=== PATIENT | male | born 1930 | race Caucasian/White ===

== ENCOUNTER 2019-09-30 09:47 | Inpatient (IN) ==
[2019-09-30 11:04] LABS: BASO# 0.06 X1000 (0.0-0.2); EOS% 1.6 % (0.0-10.0); HEMATOCRIT 39.6 % (42.0-52.0); HEMOGLOBIN 12.7 g/dL (14.0-18.0); LYMPH# 1.73 X1000 (1.2-3.4); LYMPH% 28.4 % (20.5-51.1); MCH 29.7 PG (27-31); MCHC 32.1 g/dL (33-37); MCV 92.7 FL (81-99); MONO# 0.47 X1000 (0.11-0.59); MONO% 7.7 % (1.7-9.3); MPV 10.2 FL (7.4-10.4); NEUT# 3.73 X1000 (1.4-6.5); NEUT% 61.3 % (42.2-75.2); PLT 175 X1000 (130-400); RBC 4.27 XMIL (4.7-6.1); RDW 13.1 % (11.5-14.5); WBC 6.09 X1000 (4.8-10.8)
[2019-09-30 11:19] LABS: INR 2.78; PROTIME 30.2 Seconds (11.0-16.0)
[2019-09-30 11:20] LABS: PTT 38.3 Seconds (22.3-41.8)
[2019-09-30 11:27] LABS: AGAP 6; ALB/GLOB RATIO 1.4; ALBUMIN 3.9 g/dL (3.5-5.0); ALKALINE PHOSPHATASE 48 U/L (32-122); BUN 19 mg/dL (8-22); CALCIUM 8.8 mg/dL (8.8-10.2); CHLORIDE 104 mmol/L (98-107); COSMO 284; ESTIMATED GFR > 60; GLUCOSE 116 mg/dL (70-104); GOT 16 U/L (10-34); GPT 12 U/L (10-44); POTASSIUM 4.7 mmol/L (3.5-5.1); SODIUM 141 mmol/L (136-145); TCO2 31 mmol/L (25-35); TOTAL BILIRUBIN 0.34 mg/dL (0.20-1.00); TOTAL PROTEIN 6.7 g/dL (6.3-8.3)
[2019-09-30 12:15] LABS: URINE SOURCE CLEAN CATCH
[2019-09-30 12:21] LABS: BILIRUBIN URINE NEGATIVE (NEGATIVE); BLOOD URINE NEGATIVE (NEGATIVE); COLOR YELLOW; GLUCOSE URINE NEGATIVE (NEGATIVE); KETONE URINE NEGATIVE (NEGATIVE); LEUKOCYTES URINE NEGATIVE (NEGATIVE); NITRITE URINE NEGATIVE (NEGATIVE); PROTEIN URINE NEGATIVE (NEGATIVE); SP GRAVITY URINE 1.017; TURBIDITY URINE CLEAR (CLEAR); UR EPITHELIAL CELLS <10 /HPF (<10); URINE BACTERIA NEGATIVE /HPF; URINE RBC <10 /HPF (<10); URINE WBC <10 /HPF (<10); UROBILINOGEN URINE NORMAL (NORMAL)
[2019-09-30] MEDS ORDERED: SODIUM CHLORIDE 0.9% INJ ONE (12:27)
[2019-09-30] MEDS ORDERED: PROTONIX IV ONE (12:27)
--- NOTE | 2019-09-30 12:29 | PROVIDER DOCUMENTATION ---
This chart was entered by Cecilia Salcido Scribe, acting as scribe for Roel Leon MD. HPI-Abdominal Pain/GI Problem - General Chief Complaint: GI Bleed Stated Complaint: RECTAL BLEEDING Time Seen by Provider: 09/30/19 10:14 Source: patient, family (daughter) Allergies/Adverse Reactions: Patient Allergies Allergy/AdvReac Type Severity Reaction Status Date / Time No Known Allergies Allergy Verified 12/12/13 11:30 Home Medications: Home Medication List Medication Instructions Recorded Confirmed Last Taken Type Tamsulosin HCl [Flomax] 0.4 mg PO DAILY 12/12/13 09/30/19 07/16/19 08:00 History Metoprolol Tartrate 25 mg PO DAILY 07/10/19 09/30/19 07/17/19 07:17 History Hope-3 Fatty Acids/Fish Oil [Fish 1 cap PO DAILY 09/30/19 09/30/19 Unknown History Oil 1,000 mg Capsule] Warfarin Sodium 5 mg PO ORDERED 09/30/19 09/30/19 Unknown History - History of Present Illness-ABD Nature of Presenting Problems: 89 yowm presents to the ed with c./o x3 episodes this am with bloody diarrhea. pt sts has never had blood in stool but is on current blood thinner for DVT's. pt on exam is nontoxic in appearance and in no distress Abdominal Pain Onset Location: reports: other (rectal bleeding) Pain Radiation: reports: no radiation Quality of Pain: reports: none Severity in ED: reports: mild Onset/Duration: reports: this morning Timing: reports: intermittent Activities at Onset: reports: light activity Exposure to sick contacts?: No Modifying Factors: improves with: nothing. worse with: defecating Associated Symptoms: reports: diarrhea. denies: back/neck pain, chest pain, cough, diaphoresis, fever/chills, headaches, nausea, shortness of breath, vomiting Last BM: this morning Dark Stools Present?: reports: bright red blood Rectal Bleeding: reports: bloody diarrhea # of Diarrhea Episodes: 3 Rectal Pain: reports: none # of Vomiting Episodes: 0 Emesis Description: reports: none Bruising or Bleeding Gums?: No Similar Symptoms Previously?: No Recently seen or treated by another doctor?: No Review of Systems - Adult - REVIEW OF SYSTEMS - ADULT Constitutional: denies: chills, fever Eyes: reports: no symptoms reported Ears, Nose, Mouth & Throat: reports: no symptoms reported Cardiovascular: denies: chest pain, palpitations, syncope Respiratory: denies: cough, shortness of breath, wheezing Gastrointestinal: reports: see HPI, rectal bleeding. denies: abdominal pain, diarrhea, nausea, vomiting Genitourinary: reports: no symptoms reported Musculoskeletal: denies: back pain, neck pain Integumentary: reports: no symptoms reported Neurological: denies: dizziness/vertigo, headache/migraines Psychiatric: reports: no symptoms reported Endocrine: reports: no symptoms reported Hematologic/Lymphatic: reports: no symptoms reported Allergic/Immunologic: reports: no symptoms reported All Other Systems: Reviewed and Negative Past History - Adult - PAST MEDICAL HISTORY-ADULT Review of Records: reports: Old Records Reviewed, Nursing Assessment Review, Medications Reviewed, Social history reviewed & non-contributory. Major Childhood Illnesses: reports: denies history Cardiovascular: reports: blood clots, HTN, NM Respiratory: reports: denies history Gastrointestinal: reports: denies history Genitourinary: reports: kidney stones, other (enlarged prostate) Musculoskeletal: reports: denies history Hand Dominance: Right Handed Neurological: reports: denies history Psychiatric: reports: denies history Endocrine/Immune: reports: denies history Other Conditions: reports: cataract/glaucoma - PRIOR SURGERIES/PROCEDURES Surgical/Procedure History: reports: hernia repair, other (cataract removal) - PRIOR HOSPITALIZATIONS Prior Hospitalizations: reports: none - IMMUNIZATION STATUS Childhood Immunizations: See Nurse Assessment Flu Vaccine: See Nurse Assessment - FAMILY HISTORY Family History: reviewed, not pertinent - SOCIAL HISTORY Smoking: denies Substance Use: denies Living Situation: family Physical Exam-General - PHYSICAL EXAM-ADULT Initial Vital Signs Reviewed: Yes - CONSTITUTIONAL General Appearance: appears well, alert, no apparent distress - EYES Eyes: PERRL/EOMI, pink conjunctivae - HEAD, EARS, NOSE, MOUTH & THROAT HENMT: moist mucous membranes, normal ENT inspection - NECK Neck: non-tender, full range of motion, supple, normal inspection - RESPIRATORY Respiratory: chest non-tender, lungs clear, normal breath sounds - CARDIOVASCULAR Cardiovascular: normal peripheral pulses, regular rate, rhythm - CHEST (BREASTS) Chest/Breast: deferred - GASTROINTESTINAL (ABDOMEN) Abdominal Exam: normal bowel sounds, non tender, soft, other (well healing hernia sx scar on abdomen) - GENITOURINARY Rectal Exam: normal rectal tone, prostate enlarged/nodule Hemoccult Exam: heme positive stool - LYMPHATIC Lymphatic: no adenopathy - MUSCULOSKELETAL Back Exam: normal inspection, no CVA tenderness, no vertebral tenderness Extremity: normal range of motion, non-tender, normal inspection - SKIN Integumentary: normal color, normal turgor, warm/dry - NEUROLOGIC Neurologic: grossly normal - PSYCHIATRIC Psych/Mental Status: normal mood/affect, normal thought content, normal thought process, oriented x 3 Progress - PLAN OF CARE/RESULTS Progress/Plan/Lab Results: Vital Signs - 8 hr 09/30/19 09:53 Temperature 97.3 F L Pulse Rate 70 Respiratory Rate 18 Blood Pressure 160/83 O2 Sat by Pulse Oximetry 98 Orders Category Date Time Status CBC WITH ELECTRONIC DIFF [HEME] Stat Lab 09/30/19 10:14 Uncollected COMPREHENSIVE METABOLIC PANEL [CHEM] Stat Lab 09/30/19 10:14 Uncollected OCCULT BLOOD SCREENING [STOOL] Stat Lab 09/30/19 10:15 Uncollected PT [PROTIME WITH INR] [COAG] Stat Lab 09/30/19 10:14 Uncollected PTT [COAG] Stat Lab 09/30/19 10:14 Uncollected UA [URINALYSIS W/POSS RFLX CULT] [URINALYSIS] Stat Lab 09/30/19 10:15 Uncollected Result Diagrams: 09/30/19 10:42 09/30/19 10:42 - REASSESSMENT Reassessment #1 Time Reassessed: 12:17 Status: unchanged (dr at bedside) Reassessment #2 Time Reassessed: 13:06 Status: unchanged (pt had x2 more episodes of rectal bleeding) - CT/MRI 1 CT Study: Abdomen, Pelvis Impression: See EMR Report - CONSULTS/PCP/HOSPITALIST Notification #1 *Consult/PCP/Hospitalist*: hospitalist Time Discussed: 12:26 Consult Disposition: Admit Departure - Departure Date of Disposition Decision: 09/30/19 Time of Disposition Decision: 12:28 DIAGNOSIS: GI bleed Disposition: ADMITTED INPATIENT 09 Certified Medical Emergency: Emergent Condition: Fair - Critical Care Note This patient required my direct & personal management of CC.: Yes Total Time (mins): 36 Critical Care Statement: This patient required my direct personal management to treat or rule out processes, the absence of which, could potentiallly result in sudden, clinically significant life or limb threatening deterioration. Attestation - Physician/ DAVID Attestation Patient care was provided by Advanced Practice Provider:: No The physician spent face to face time with patient:: Yes Advanced Practice Provider documentation review:: Supervising physician onsite and consulted in the evaluation and care of this patient. The physician did have a face to face encounter with the patient. This chart was documented by the indicated scribe, (Cecilia Salcido Scribe) and accurately reflects the services I performed and decisions made by me, Roel Leon MD, as attested by the provider's signature.
[2019-09-30] MEDS ORDERED: ZOFRAN IV PRN (13:14)
[2019-09-30] MEDS ORDERED: TYLENOL PO PRN (13:14)
[2019-09-30] MEDS: NS 1,000 ML IV SCH (13:15)
[2019-09-30 13:56] LABS: IRON SATURATION 24 %; TIBC 209 ug/dL; TOTAL IRON 50 ug/dL (53-167); UNBOUND IRON 159 ug/dL (112-346)
[2019-09-30 14:16] LABS: FERRITIN 269 ng/mL (30-400)
--- NOTE | 2019-09-30 15:49 | Diag Imaging Result Doc PS360 ---
EXAM: CT ABDOMEN/PELVIS W/WO CONTRAS HISTORY: gib; bright red stools TECHNIQUE: CT abdomen and pelvis with and without contrast COMPARISON: None. FINDINGS: Noncontrasted images: There are scattered hepatic and splenic granuloma. No renal stones. No hydronephrosis. There are several calcified gallstones. No inflammation about the gallbladder. Prominent atherosclerosis. No aortic aneurysm. There are scattered colonic diverticula. No bowel obstruction. Post contrasted images: No focal hepatic lesion. Spleen is not enlarged. Normal pancreas and adrenal glands. There are parapelvic left renal cysts with tiny cortical cysts. Normal appendix. No abscess. There are urinary bladder diverticula. The prostate is enlarged measuring at least 5 cm. It bulges into the inferior urinary bladder. Fat filled left inguinal hernia. IMPRESSION: 1.Nephrolithiasis 2.Cholelithiasis 3.Colonic diverticulosis 4.Prostatic hypertrophy 5.Urinary bladder diverticula. Urological consult recommended to ensure there is no lesion within the urinary bladder. This exam was performed using automated exposure control, adjustment of mA or kV according to patient size, and/or use of iterative reconstruction technique. Electronically signed by Tapan Dolan 09/30/2019 3:46 PM
--- NOTE | 2019-09-30 16:46 | EKG Report ---
Test Performed on : 09/30/2019 4:39:29 PM Test Reason : eval rythm; h/o afib Blood Pressure : / mmHG Vent. Rate : 067 BPM Atrial Rate : 067 BPM P-R Int : 158 ms QRS Dur : 086 ms QT Int : 380 ms P-R-T Axes : 071 003 053 degrees QTc Int : 401 ms Normal sinus rhythm. Normal ECG When compared with ECG of 26-NOV-2014 13:54, No significant change was found Unconfirmed Result
[2019-09-30] MEDS ORDERED: VITAMIN K 10 MG in NS 50 ML IV ONE (17:00)
[2019-09-30 17:45] LABS: HEMATOCRIT 37.4 % (42.0-52.0)
--- NOTE | 2019-09-30 19:47 | HISTORY AND PHYSICAL ---
PRIMARY CARE PROVIDER: Mitch Reddy MD CHIEF COMPLAINT: Bloody diarrhea. HISTORY OF PRESENT ILLNESS: Mr. Germain Menendez is an 89-year-old male with a medical history of right lower extremity DVT, atrial fibrillation, BPH, CAD, hypertension, osteoarthritis who has been on anticoagulation therapy, he thinks for at least 20 years, for DVT and atrial fibrillation. Currently INR is therapeutic at 2.78, but he is having several bright red bloody stools, which started around some time this morning. His original hemoglobin was 12.7, but with him being so pale and multiple bowel movements that were bloody, we will give him 1 unit of blood and 1 unit of FFP and vitamin K, and we will hold his Coumadin. We have consulted Gastroenterology. He has had an abdominal pelvic CT with and without contrast, which shows nephrolithiasis, cholelithiasis, colonic diverticulosis, BPH, and urinary bladder diverticulum. He may very well possibly be having a bleed from the diverticula in the colon. He denies any blood in the urine, and there is no blood located in the urine on his urinalysis. He denies being short of breath or dizzy or lightheaded. No chest pain, and so we will do clear liquids today and n.p.o. after midnight. Again, gastroenterology has been consulted. PAST MEDICAL HISTORY: 1. Paroxysmal atrial fibrillation. 2. BPH. 3. Right lower extremity DVT history. 4. CAD. 5. Hypertension. 6. Osteoarthritis. PAST SURGICAL HISTORY: Bilateral inguinal hernia repair. SOCIAL HISTORY: Lives in [place] alone. Denies illicit drug use. He smoked a pipe between the age of 26 and 51. FAMILY HISTORY: Mother and father both had congestive heart failure. He had a brother with diabetes. ALLERGIES: No known drug allergies. HOME MEDICATIONS: 1. Fish oil 1 capsule p.o. daily. 2. Flomax 0.4 mg p.o. daily. 3. Metoprolol tartrate 25 mg p.o. daily. 4. Coumadin 5 mg p.o. Sunday, Sunday, Sunday, and then 2.5 mg on Sunday, Sunday, , and Sunday. REVIEW OF SYSTEMS: A 14-point review of systems are complete and all were negative except for those mentioned above in the HPI. PHYSICAL EXAMINATION: VITAL SIGNS: T 97.4 degrees, heart rate 77, respiratory rate 18, blood pressure 158/65, O2 saturation 100% on room air. He is 5 feet 6 inches tall, 142 pounds, BMI is 23. GENERAL: Mr. Germain Menendez is an 89-year-old male. He is in no acute distress. He is able answer questions appropriately. HEENT: Atraumatic, normocephalic. Pupils equal, round, reactive to light. Extraocular movements intact. Mucous membranes are dry. NECK: Trachea midline. CARDIOVASCULAR: S1, S2. Regular rate and rhythm. No rubs, gallops, murmurs. No lower extremity edema. He has +2 dorsalis and radial pulses. Negative JVD or carotid bruits. PULMONARY: Clear to auscultation, bilateral breath sounds. No accessory muscle use or work of breathing noted. GASTROINTESTINAL: Soft, tender to the right lower quadrant. Positive bowel sounds x4. EXTREMITIES: Moves all extremities equally. Decreased range of motion. NEUROLOGIC: A and O x3. Follows commands. Sensory is intact. SKIN: Warm, dry, intact, but very pale. LABORATORY DATA: White blood cells 6000, hemoglobin 12, hematocrit 39, platelet count 175,000. INR is 2.78, PTT is 38.3. Sodium 141, potassium 4.7, BUN is 19, creatinine is 1, glucose 116, calcium 8.8. Iron is 50, saturated iron is 24, total iron binding capacity is 209, ferritin is 269. Bilirubin 0.34, AST 16, ALT 12, albumin is 3.9, vitamin B12 of 352, folate is 26. Urinalysis negative. IMAGING: Abdominal pelvic CT, nephrolithiasis, cholelithiasis, colonic diverticulosis, plus BPH, urinary bladder diverticula. ASSESSMENT AND PLAN: 1. Lower gastrointestinal bleeding with acute blood loss anemia. We will have a consult for gastroenterology. It is bright red bloody stools that he is having, and he is having several, and positive for heme of course. He is going to get 1 unit of packed red blood cells, 1 unit of fresh frozen plasma, and 10 mg of vitamin K. He is going to have his Coumadin held. 2. History of paroxysmal atrial fibrillation and right lower extremity deep vein thrombosis. He has been on long-term Coumadin therapy. Currently, we are going to reverse the Coumadin and hold it for now until we can find source of gastrointestinal bleeding. 3. History of coronary artery disease. No complaints of chest pain. 4. Hypertension, stable. We will continue beta-hernan. 5. Osteoarthritis. 6. Benign prostatic hypertrophy. Continue Flomax. 7. Reported bladder diverticula with recommended urology consult. Dr. Martin has been consulted for any recommendations. Urinalysis is negative for any blood. 8. Deep venous thrombosis prophylaxis, sequential compression devices. Dictated by JAISON Nascimento for Amol Branham MD Addendum: Patient seen and examined by myself. Agree with JAISON note. It reflects my assessment and plan. Patient is being admitted to hospital for GI bleeding. Will transfuse one unit of blood considering this active bleeding, will transfuse FFP and provide vitamin K because he is on warfarin. Will consult GI and monitor patient closely. cc: JAISON Nascimento MD [facility]
--- NOTE | 2019-09-30 20:39 | CONSULTATION ---
DATE OF CONSULTATION: 09/30/2019 ATTENDING/REFERRING PHYSICIAN: Etelvinaist. CHIEF COMPLAIN: Bloody diarrhea. HISTORY OF PRESENT ILLNESS: This 89-year-old male was admitted with a GI bleed (bloody diarrhea). As part of the evaluation, he had a CT scan of the abdomen and pelvis. It was noted on the CT scan that he had a large prostate projecting into the bladder. The radiologists felt further evaluation of this was needed to ensure that it was not hiding a mass. Also noted was a small bladder diverticulum that is not usual in the men with large prostate. The patient has a long history of elevated PSA's, and he has had multiple (x2) transrectal prostate ultrasounds and biopsies over the years. The patient's last biopsy was in 2008. At that time, he was noted to have a very large prostate. He is currently on Flomax at 0.4 mg a day. He states he feels like he is voiding okay but has noted a decrease in the force and caliber of urine stream. He has had no hematuria. He has no problems with urinary tract infections. There is no history of kidney stones. PAST MEDICAL HISTORY: Hypertension, coronary artery disease status post CA, history of DVT. CURRENT MEDICATIONS: Documented on the chart and include Flomax at 0.4 mg a day, and Coumadin. PAST SURGICAL HISTORY: Transrectal prostate ultrasound and biopsies x2. Heart catheterization, right inguinal hernia repair and most recently a left inguinal hernia repair in June 2019. SOCIAL HISTORY: Former tobacco user, but none since the early 60s. ETOH use is negative. ALLERGIES: No known drug allergies. REVIEW OF SYSTEMS: Usually in good health. He states the left inguinal hernia repair helped with left lower quadrant abdominal pain. He denies any breathing problems. He denies any abdominal pain. PHYSICAL EXAMINATION: General: A thin, age-apparent, normally developed, white male, oriented in all ways and cooperative. HEENT: Normal for age. Lungs: Clear. Cardiovascular: Regular rate and rhythm with holosystolic murmur. Abdomen: Mildly protuberant soft, nontender. No hepatosplenomegaly or masses. Normal bowel sounds. : Uncircumcised male. Both testes are down. Scrotal exam is normal. There are no inguinal hernias. Rectal: Deferred. His prostate was about 80 grams, smooth, and symmetric in December 2018. Neurologic: No focal deficits. Extremities: No clubbing, cyanosis, or edema. LABORATORY EVALUATION: He has a white count of 6.09, hemoglobin of 12.7, hematocrit of 39.6. His serum electrolytes are normal. BUN 19, creatinine 1.0. CT scan of the abdomen and pelvis is as noted in the HPI. IMPRESSION/PLAN: 1. Enlarged prostate with some obstructive voiding. 2. Elevated PSA status post prostate ultrasound and biopsies x2. CT scan reveals the prostate protruding into the bladder, and per the radiologist's recommendation needs further evaluation to ensure the prostate is not hiding a bladder mass. 3. Gastrointestinal bleed. Recommend after his gastrointestinal bleed is fully evaluated and treated, will see him in the urology clinic and schedule a cystoscopic exam to ensure his bladder does not have a mass. 4. Add Flomax 0.4 mg a day b.i.d. Thank you for this consultation. cc: Ziggy Martin MD
[2019-09-30] MEDS: FLOMAX PO SCH (21:20)
[2019-09-30] MEDS: LOPRESSOR PO SCH (21:20)
[2019-09-30] MEDS: PROTONIX IV SCH (21:21)
[2019-10-01] MEDS ORDERED: BENADRYL IV ONE (00:26)
[2019-10-01 00:51] LABS: HEMATOCRIT 35.1 % (42.0-52.0); HEMOGLOBIN 11.3 g/dL (14.0-18.0)
[2019-10-01 06:21] LABS: BASO# 0.06 X1000 (0.0-0.2); BASO% 1.1 % (0.0-0.8); EOS# 0.13 X1000 (0.0-0.7); EOS% 2.3 % (0.0-10.0); HEMATOCRIT 34.2 % (42.0-52.0); HEMOGLOBIN 10.8 g/dL (14.0-18.0); LYMPH# 1.52 X1000 (1.2-3.4); LYMPH% 27.1 % (20.5-51.1); MCH 29.5 PG (27-31); MCHC 31.6 g/dL (33-37); MCV 93.4 FL (81-99); MONO# 0.48 X1000 (0.11-0.59); MONO% 8.6 % (1.7-9.3); MPV 10.3 FL (7.4-10.4); NEUT# 3.41 X1000 (1.4-6.5); NEUT% 60.9 % (42.2-75.2); PLT 144 X1000 (130-400); RBC 3.66 XMIL (4.7-6.1); RDW 13.3 % (11.5-14.5)
[2019-10-01 06:36] LABS: PTT 31.5 Seconds (22.3-41.8)
[2019-10-01 06:37] LABS: INR 1.45
[2019-10-01 06:50] LABS: AGAP 1; ALB/GLOB RATIO 1.4; ALBUMIN 3.4 g/dL (3.5-5.0); ALKALINE PHOSPHATASE 49 U/L (32-122); BUN 14 mg/dL (8-22); CALCIUM 8.6 mg/dL (8.8-10.2); CHLORIDE 105 mmol/L (98-107); COSMO 279; ESTIMATED GFR > 60; GLUCOSE 108 mg/dL (70-104); GOT 15 U/L (10-34); GPT 9 U/L (10-44); POTASSIUM 4.5 mmol/L (3.5-5.1); SODIUM 139 mmol/L (136-145); TCO2 33 mmol/L (25-35); TOTAL PROTEIN 5.9 g/dL (6.3-8.3)
[2019-10-01] MEDS ORDERED: SODIUM CHLORIDE 0.9% 10 ML ONE (07:36)
[2019-10-01] MEDS: PROTONIX IV SCH ×3 (08:29→20:28)
[2019-10-01] MEDS: SODIUM CHLORIDE 0.9% INJ SCH (08:29)
[2019-10-01] MEDS: FISH OIL CONCENTRATE PO SCH (08:29)
[2019-10-01] MEDS: FLOMAX PO SCH ×3 (08:30→20:28)
[2019-10-01] MEDS: LOPRESSOR PO SCH ×3 (08:30→20:28)
[2019-10-01] MEDS ORDERED: FLOMAX PO SCH (09:00)
--- NOTE | 2019-10-01 09:05 | PROGRESS NOTE ---
DATE: 10/01/2019 SUBJECTIVE: The patient reports still having bloody stools. Denies any episodes of dizziness or feeling lightheaded. OBJECTIVE: Vital Signs: Temperature 97.6 degrees, heart rate 67, respiratory rate 16, blood pressure 149/66, O2 saturation 99% on room air. General: This is an 89-year-old male, lying in bed in no acute distress. HEENT: Head is normocephalic, atraumatic. Neck: No JVD noted. No carotid bruits. No lymphadenopathy. No thyromegaly. Cardiovascular: S1, S2 heard. No murmurs, gallops, or rubs. Regular rate and rhythm. Respiratory: Clear bilaterally to auscultation. No work of breathing or using accessory muscles. Abdomen: Soft, a little bit distended, but nontender to palpation. Bowel sounds present. No organomegaly. Extremities: No clubbing, cyanosis, or edema. Peripheral pulses present in both legs. Neurological: The patient is alert and oriented x3. Moves all 4 extremities. LABORATORY DATA: White cell count 5.6, hemoglobin 10.8, hematocrit 34.2, platelets 144,000. Normal BMP. ASSESSMENT AND PLAN: 1. Lower gastrointestinal bleed with acute blood loss anemia. Most likely, this bleeding is coming from a diverticulum that we have seen on the CT of the abdomen. We have seen personally his bright red bloody stool that he is having. He has received so far 1 unit of fresh frozen plasma and 10 mg of vitamin K to reverse the action of the Coumadin. His INR today is 1.45 from 2.78 yesterday. At this point, he is nothing by mouth in anticipation for possible procedure by Gastroenterology. Will see if he is scoped today or not. So far, he has been transfused 1 unit of blood and 1 unit of fresh frozen plasma as we mentioned before. Will continue to monitor this patient closely. 2. Paroxysmal atrial fibrillation. At this point, the patient is in a sinus rhythm. He has also history of right lower extremity deep venous thrombosis. He has been on Coumadin long-term, but that medication has been held because of the gastrointestinal bleeding. 3. Coronary artery disease. Stable. He is not complaining of any chest pain. 4. Hypertension. Blood pressure is under control. Will continue with beta-blockers. 5. Osteoarthritis. Stable. Will continue to monitor. 6. Benign prostatic hypertrophy. Will continue with Flomax. 7. Bladder diverticulum. Urology has been consulted, and they will perform cystoscopy as an outpatient. 8. Disposition. Will follow the lead from General Surgery. Will continue to monitor hemoglobin and hematocrit. cc: Amol Branham MD
[2019-10-01] MEDS: NS 1,000 ML IV SCH (12:19)
[2019-10-01 12:39] LABS: HEMOGLOBIN 11.2 g/dL (14.0-18.0)
[2019-10-01] MEDS ORDERED: GOLYTELY PO ONE (18:00)
[2019-10-01 18:28] LABS: HEMATOCRIT 34.7 % (42.0-52.0)
--- NOTE | 2019-10-01 18:32 | GASTROENTEROLOGY CONSULTATION ---
DATE: 10/01/2019 REASON FOR CONSULT: Lower GI bleed. HISTORY OF PRESENT ILLNESS: Mr. Menendez, an 89-year-old, male presented to the hospital with medical history of lower extremity DVT, atrial fibrillation, BPH, CAD, hypertension, osteoarthritis, and he is currently on warfarin due to the blood clot in his right leg, he is taking it for almost more than 20 years. The patient came in yesterday morning, with complaints of noticing blood clots which were bright red. He has denied any abdominal pain, nausea, vomiting, fever or chills. He has been having regular bowel movements and said he has never had any issues with it. His H & H on admission was 12.7 & 39.6. His PT was 30.29, INR was 2.78. Currently, his H & H is 11.2 and 34.0, and PT/INR is 18.0/1.45. The patient was transfused 1 unit of packed red blood cells and 1 unit of platelets. His abdomen and pelvis CT showed nephrolithiasis, cholelithiasis, colonic diverticulosis, prostatic hypertrophy, urinary bladder diverticula. PAST MEDICAL HISTORY: Atrial fibrillation, BPH, right lower extremity DVT, coronary artery disease, hypertension, and osteoarthritis. PAST SURGICAL HISTORY: Hernia repair bilaterally. SOCIAL HISTORY: He lives alone. He has three kids. He is a past smoker and a past alcoholic. FAMILY HISTORY: Both of his parents had congestive heart failure and his brother had diabetes. ALLERGIES: No known drug allergies. HOME MEDICATIONS: Flomax 0.4 mg daily, metoprolol tartrate 25 mg daily, warfarin 5 mg as ordered, and omega-3 fatty acids 1 capsule daily. REVIEW OF SYSTEMS: As per HPI. Otherwise, a 12-point review of systems is negative. PHYSICAL EXAMINATION: Vital Signs: Temperature 97.8 degrees, pulse 69, respirations 21, blood pressure 124/72, oxygen saturation is 100% on room air. The patient's weight is 143 pounds. BMI is 23.2 kg/m2. General: He is alert, oriented x3, and in no acute distress. HEENT: Pale conjunctivae. No icterus. PERRL. Neck: Supple. Lungs: Clear to auscultation in the anterior zaragoza. Cardiovascular: Regular rate and rhythm. Abdomen: Soft, nontender, nondistended. Active bowel sounds heard in all 4 quadrants. Extremities: No clubbing. No cyanosis. No edema. Pedal pulses 2+ present bilaterally. Neurological: Alert, oriented x3. Nonfocal. Cranial nerves 2-12 grossly intact. LABORATORY DATA: WBC 5.60, RBC 3.66, hemoglobin 11.2, hematocrit 34.0, platelet count is 144,000. PT 18.0, INR 1.45. Sodium 137, potassium 4.5, chloride 105, carbon dioxide 33, anion gap 1, BUN 14, creatinine 1.0, glucose 108, calcium 8.6, magnesium 2.0. Total bilirubin is 1.40, AST 115, ALT 9, alkaline phosphatase 5.9, albumin 3.4. Urinalysis was negative. IMPRESSION: 1. Lower gastrointestinal bleed. 2. History of atrial fibrillation. 3. Coronary artery disease. 4. Benign prostatic hypertrophy. 5. Heart attack. 6. Deep vein thrombosis in the right lower extremity. PLAN: We plan to do a colonoscopy tomorrow. The patient is currently on clear liquids. We will continue with the clear liquids for now and NPO after midnight for the procedure. We have put a hold on his anticoagulant. The patient is receiving Protonix 40 mg b.i.d. for his GI bleed. He is on IV fluids 50 mL/h normal saline. We will continue to monitor patient's CBC, BMP, and follow the plan of care per PCP. Further plan of care will be based on the colonoscopy findings. Discussed the risks, benefits, and alternatives of the procedure, patient and family acknowledges understanding of the plan of care. This plan was discussed with Dr. Pendleton. Thank you for your consult and please call us for any further questions or concerns. Dictated by JAISON Hammond for Lewis Pendleton MD Physician Attestation I have seen and examined the patient. I have discussed and reviewed the the note by Mitra BLACKWOOD and agree with findings and plan as documented. In brief, Mr. Germain Menendez is a 89 year old man with afib on Coumadin who presents with hematochezia with BRB and clots x 1 day. He denies abdominal pain or melena. Last colon >10 years ago. INR supratherapeutic. Hold coumadin. On PPI. Trend H/H. Transfuse prn goal hgb 7-8. Check INR goal INR 1.5. Prep for colonoscopy on with Dr. Bashir. RUIZD
[2019-10-02 01:54] LABS: HEMATOCRIT 32.5 % (42.0-52.0); HEMOGLOBIN 10.5 g/dL (14.0-18.0)
[2019-10-02 06:06] LABS: BASO# 0.05 X1000 (0.0-0.2); BASO% 0.9 % (0.0-0.8); EOS# 0.16 X1000 (0.0-0.7); EOS% 2.9 % (0.0-10.0); HEMATOCRIT 32.5 % (42.0-52.0); HEMOGLOBIN 10.4 g/dL (14.0-18.0); LYMPH# 1.49 X1000 (1.2-3.4); MCH 30.1 PG (27-31); MCV 93.9 FL (81-99); MONO# 0.47 X1000 (0.11-0.59); MONO% 8.5 % (1.7-9.3); MPV 10.5 FL (7.4-10.4); NEUT# 3.34 X1000 (1.4-6.5); NEUT% 60.7 % (42.2-75.2); PLT 138 X1000 (130-400); RBC 3.46 XMIL (4.7-6.1); WBC 5.51 X1000 (4.8-10.8)
[2019-10-02 06:26] LABS: AGAP 10; ALB/GLOB RATIO 1.4; ALBUMIN 3.3 g/dL (3.5-5.0); ALKALINE PHOSPHATASE 48 U/L (32-122); BUN 10 mg/dL (8-22); CALCIUM 8.5 mg/dL (8.8-10.2); CHLORIDE 107 mmol/L (98-107); COSMO 284; CREATININE 0.9 mg/dL (0.7-1.2); ESTIMATED GFR > 60; GLUCOSE 103 mg/dL (70-104); GOT 16 U/L (10-34); GPT 10 U/L (10-44); POTASSIUM 4.5 mmol/L (3.5-5.1); SODIUM 143 mmol/L (136-145); TCO2 26 mmol/L (25-35); TOTAL BILIRUBIN 1.03 mg/dL (0.20-1.00); TOTAL PROTEIN 5.7 g/dL (6.3-8.3)
[2019-10-02 06:27] LABS: INR 1.23; PROTIME 15.7 Seconds (11.0-16.0)
[2019-10-02] MEDS ORDERED: DIPRIVAN 1% ONE (08:20)
[2019-10-02] MEDS ORDERED: XYLOCAINE-MPF 2% ONE (08:29)
--- NOTE | 2019-10-02 08:45 | ENDOSCOPY OPERATIVE NOTE ---
[facility] ENDOSCOPY OPERATIVE NOTE , PATIENT: Germain Menendez ADM DATE: MR #: [id number] : 1930 COLONOSCOPY PROCEDURE REPORT PROCEDURE DATE: 10/02/2019 SURGEON: Eze Bashir MD STATUS: inpatient CHASER APPRENTICE: Marco Leung and Yazmin Draper PREOPERATIVE DIAGNOSIS: The patient is a 89 yr old male here for a colonoscopy due to Painless Recta l bleeding, Anemia, Chronic Coumadin for 15 years for H/o DVT and Afib. PROCEDURE PERFORMED: Colonoscopy, diagnostic MEDICATIONS: Per Anesthesia PREP TYPE: GoLytely
[2019-10-02] MEDS: FLOMAX PO SCH ×2 (09:26→21:02)
[2019-10-02] MEDS: FISH OIL CONCENTRATE PO SCH (09:26)
[2019-10-02] MEDS: LOPRESSOR PO SCH ×2 (09:26→21:02)
[2019-10-02] MEDS: PROTONIX IV SCH ×2 (09:27→21:11)
--- NOTE | 2019-10-02 09:43 | PROGRESS NOTE ---
DATE: 10/02/2019 SUBJECTIVE: The patient has not had any more episodes of bloody stools. Actually, his stools turned over to brown color and normal color. Vital Signs: Temperature 98.0 degrees, heart rate 76, respiratory rate 19, blood pressure 144/64, O2 saturation 99% on room air. General examination: This is a chronically ill-looking, 89-year-old male, lying in bed, in no acute distress. Cardiovascular: S1, S2 heard. No murmurs, gallops, or rubs. Regular rate and rhythm. Respiratory: Clear bilaterally to auscultation. No work of breathing. Not using accessory muscle. Abdomen: Soft. Nontender to palpation. Bowel sounds present. No organomegaly. Extremities: No clubbing, cyanosis, or edema. Peripheral pulses present in both legs. Neurological: Patient is alert and oriented x3. Moves 4 extremities. LABORATORY DATA: White cell count 5.51, hemoglobin 10.4, hematocrit 32.5, platelets 138,000. Iron is 15. ASSESSMENT AND PLAN: 1. Lower GI bleeding from acute blood loss anemia. The patient was admitted to the hospital because of hematochezia, bloody stools. He went to have a colonoscopy this morning which basically showed severe nonbleeding diverticulosis that was noted in the sigmoid colon and distal descending colon and medium-size internal grade 2 hemorrhoids. As we mentioned before, his hemoglobin is stable. Clinically, this patient's hemoglobin has been getting better. At this point, we will monitor this patient 1 more day and if hemoglobin is stable tomorrow we will let him go. 2. Paroxysmal atrial fibrillation. Patient is in sinus rhythm. Heart rate is well controlled. Coumadin has been held. 3. Coronary artery disease. Stable, not complaining of any chest pain. 4. Hypertension. Blood pressure is under control. We will continue with beta hernan. 5. Osteoarthritis. The patient is not complaining of any pain at this point, we will continue to monitor. 6. Benign prostatic hypertrophy. We will continue with Flomax. 7. Diverticulum. Patient will be seen as an outpatient by Urology. 8. Disposition. As we mentioned before if hemoglobin is stable tomorrow we will discharge this patient home. cc: Amol Branham MD
[2019-10-02] MEDS: NS 1,000 ML IV SCH (10:11)
[2019-10-02] MEDS: ANALPRAM HC CREAM PR SCH ×2 (10:47→21:11)
[2019-10-02] MEDS: ICAR-C PLUS PO SCH ×2 (10:47→21:02)
[2019-10-02] MEDS ORDERED: METAMUCIL POWDER PACKET PO SCH (21:00)
[2019-10-03] MEDS: NS 1,000 ML IV SCH (04:37)
[2019-10-03 06:01] LABS: BASO# 0.02 X1000 (0.0-0.2); BASO% 0.3 % (0.0-0.8); EOS# 0.19 X1000 (0.0-0.7); HEMATOCRIT 33.8 % (42.0-52.0); LYMPH# 1.86 X1000 (1.2-3.4); LYMPH% 29.2 % (20.5-51.1); MCH 30.5 PG (27-31); MCHC 32.5 g/dL (33-37); MCV 93.6 FL (81-99); MONO# 0.47 X1000 (0.11-0.59); MONO% 7.4 % (1.7-9.3); MPV 10.4 FL (7.4-10.4); NEUT# 3.84 X1000 (1.4-6.5); NEUT% 60.1 % (42.2-75.2); PLT 152 X1000 (130-400); RBC 3.61 XMIL (4.7-6.1); RDW 12.8 % (11.5-14.5); WBC 6.38 X1000 (4.8-10.8)
[2019-10-03 06:05] LABS: INR 1.16
[2019-10-03 06:19] LABS: AGAP 10; ALB/GLOB RATIO 1.5; ALBUMIN 3.5 g/dL (3.5-5.0); ALKALINE PHOSPHATASE 50 U/L (32-122); BUN 15 mg/dL (8-22); CALCIUM 8.9 mg/dL (8.8-10.2); CHLORIDE 107 mmol/L (98-107); COSMO 285; CREATININE 1.1 mg/dL (0.7-1.2); ESTIMATED GFR > 60; GLUCOSE 112 mg/dL (70-104); GOT 18 U/L (10-34); GPT 9 U/L (10-44); MAGNESIUM 1.9 mg/dL (1.5-2.7); POTASSIUM 4.3 mmol/L (3.5-5.1); SODIUM 142 mmol/L (136-145); TCO2 25 mmol/L (25-35); TOTAL BILIRUBIN 0.76 mg/dL (0.20-1.00); TOTAL PROTEIN 5.9 g/dL (6.3-8.3)
[2019-10-03 07:47] VITALS: BP 135/57
[2019-10-03] MEDS: PROTONIX IV SCH (08:09)
[2019-10-03] MEDS: SODIUM CHLORIDE 0.9% INJ SCH (08:10)
[2019-10-03] MEDS: FISH OIL CONCENTRATE PO SCH (08:10)
[2019-10-03] MEDS: LOPRESSOR PO SCH (08:10)
[2019-10-03] MEDS: ICAR-C PLUS PO SCH (08:10)
[2019-10-03] MEDS: FLOMAX PO SCH (08:10)
[2019-10-03] MEDS: ANALPRAM HC CREAM PR SCH (08:11)
--- NOTE | 2019-10-03 14:43 | GASTROENTEROLOGY PROGRESS NOTE ---
DATE: 10/03/2019 SUBJECTIVE: Mr. Menendez was sitting in his bed, family at the bedside. He denied any nausea, vomiting, or abdominal pain. He did have one bowel movement but did not notice any blood in the stools. OBJECTIVE: Vital Signs: Temperature 97.7 degrees, pulse 71, respirations 18, blood pressure 135/57, oxygen saturation 99% on room air. General: He is alert, oriented x3, in no acute distress. HEENT: Pale conjunctivae. No icterus. PERRL. Neck: Supple. Lungs: Clear to auscultation in the anterior zaragoza. Cardiovascular: Regular rate and rhythm. Abdomen: Soft, nontender, nondistended. Active bowel sounds heard in all 4 quadrants. Extremities: No clubbing, no cyanosis, no edema. Pedal pulses 2+ present bilaterally. Neurological: Alert and oriented x3. LABORATORY DATA: WBC 6.38, RBC 3.61, hemoglobin is 11.0, hematocrit 33.8, platelet count is 152,000. Sodium 142, potassium 4.3, chloride 107 carbon dioxide 25, anion gap 10, BUN 15, creatinine 1.1, glucose 112, calcium is 8.9, magnesium 1.9, total bilirubin 0.76, AST 18, ALT 9, alkaline phos 50, albumin 3.5. IMPRESSION: Lower GI bleed History of A-fib CAD BHP Heart attack DVT right lower extremity PLAN: We did a colonoscopy yesterday and the findings were nonbleeding diverticulosis noted in the sigmoid colon and the distal descending colon. Medium-sized grade 3 hemorrhoids were found. The patient had some 6 mm polyps in the sigmoid colon. 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 The patient has been asked to start a high-fiber diet. He is on Metamucil 1 to 2 tablespoon at bedtime, and advised to avoid foods that have nuts corn, and seeds. The patient is on Protonix 40 mg IV twice a day. He is on iron for his anemia. The patient is supposed to get discharged. We have asked the patient to follow up as an outpatient once he is discharged in 4 to 6 weeks. This plan was discussed with Dr. Pendleton. Please call us for any further questions or concerns. Dictated by JAISON Hammond for Lewis Pendleton MD cc: Oscar Leo MD Physician Attestation I have seen and examined the patient. I have discussed and reviewed the the note by Mitra BLACKWOOD and agree with findings and plan as documented. If brief, Mr. Menendez is a 89 year old man who presented with LGIB bleed found to have diverticulosis, hemorrhoids, and non-bleeding cecal AVM. His hgb and VSS. Recommend high fiber diet. No indication to continue PPI. No contraindication for restarting coumadin for Afib. Defer to primary [employer] mechanical. RUIZD
--- NOTE | 2019-10-04 12:45 | DISCHARGE SUMMARY ---
ADMISSION DATE: 09/30/2019 DISCHARGE DATE: 10/03/2019 ADMISSION DIAGNOSES: 1. Lower gastrointestinal bleeding with acute blood loss anemia. 2. History of paroxysmal atrial fibrillation and right lower extremity deep venous thrombosis. 3. History of coronary artery disease. 4. Hypertension. 5. Osteoarthritis. 6. Benign prostatic hypertrophy. 7. Reported bladder diverticula with recommend Urology consult. DISCHARGE DIAGNOSES: 1. Lower gastrointestinal bleeding with acute blood loss anemia. 2. Paroxysmal atrial fibrillation. 3. Coronary artery disease. 4. Hypertension. 5. Osteoarthritis. 6. Benign prostatic hypertrophy. 7. 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 CONSULTATIONS: 1. Dr. Pendleton. 2. Next Dr[address] Ziggy Martin. SURGERIES OR PROCEDURES: Colonoscopy showed severe nonbleeding diverticulosis noted in the sigmoid colon and distal descending colon. There were medium-sized grade 3 hemorrhoids, internal. There was a 6 mm polyp found in the sigmoid colon and an AV malformation found in the cecum. There were recommendations to follow the hemoglobin and hematocrit and transfuse as needed. Start iron supplementation for least 3 months and start Metamucil at bedtime and a diverticulosis diet. HOSPITAL COURSE: Mr. Germain Menendez is an 89-year-old male with a medical history of paroxysmal atrial fibrillation and DVT on Coumadin therapy, arrived with complaints of bloody diarrhea. INR was at 2.78. He received vitamin K, FFP, and also some blood. Coumadin was held. Imaging revealed that there is also questionable diverticula in the urinary bladder, possible mass and Urology be consulted. Dr. Martin saw him and will follow up with him and do a cystoscopy as outpatient evaluation. He had a colonoscopy performed. Results are as above. Recommendations are also as above. Vital signs are stable. He will be discharged home. DISCHARGE VITAL SIGNS: Temperature 97.7 degrees, heart rate 71, respiratory rate 18, blood pressure 135/57, O2 saturation 99% on room air. DISCHARGE LAB DATA: White blood cells 6000, hemoglobin 11, hematocrit 33, platelet count 152,000. INR is 1.16. Sodium 142, potassium 4.3, BUN 15, creatinine is 1.1, glucose 112, calcium 8.9, bilirubin 0.76, AST 18, ALT 9, albumin 3.5. IMAGING: Abdominal pelvic CT, nephrolithiasis, cholelithiasis, colonic diverticulosis, BPH, urinary bladder diverticula. Urological consult recommended to ensure there is no lesion within the urinary bladder. EKG normal sinus rhythm, rate 67, QTc 401. DISCHARGE MEDICATIONS: 1. Fish oil. 2. Flomax 0.4 mg p.o. daily. 3. Metoprolol 25 twice a day. 4. Flomax 0.4 mg p.o. twice daily. 5. Iron or Icar C twice daily. 6. Metamucil once nightly. 7. Protonix 40 mg p.o. daily. 8. Coumadin resume as previously prescribed 5 mg Sunday, Sunday, Sunday and 2.5 mg Sunday, Sunday, , Sunday. DISCHARGE DIET: Regular. DISCHARGE ACTIVITY: As tolerated. DISCHARGE INSTRUCTIONS: If her condition changes, contact physician and/or return to the emergency department. Changes may include, but not limited to shortness of breath, increased fatigue, excessive bleeding, unexplained weight loss or gain, unmanageable pain, signs or symptoms of infection. Notify your MD of any of the following signs or symptoms of active bleeding, shortness of breath, chest pain, fever over 101. General instructions keep all followup appointments. Take all prescribed medications as directed. Drink enough water to keep her urine clear to pale yellow. Return to the emergency department immediately for any new or worsening symptoms. PHYSICIAN FOLLOWUPS: His new primary care doctor is Dr. Oscar Leo Dr. Will also be seen by Dr. Ziggy Martin, Dr. Lewis Pendleton. DISCHARGE DISPOSITION: Home. Dictated by JAISON Nascimento for Amol Branham MD Addendum: Patient seen and examined by myself. Agree with JAISON note. It reflects my assessment and plan. Patient is being released in stable condition. Will be seen by PCP and subspecialist mentioned above. cc: JAISON Nascimento MD Robert Allen, MD [facility]
== END 2019-10-03 10:30 | disposition home health service (06) | DRG 378 ==
LOC: ED 09:47 → 2N 13:44
PROVIDERS: ADMIT Family Medicine; ATTEND Family Medicine